=== PATIENT | male | born 1990 | race Caucasian/White ===

== ENCOUNTER 2017-02-23 23:52 | Emergency (ER) | payer BC ==
--- NOTE | 2017-02-24 00:06 | EDM.PDOC ---
ED HPI GENERAL MEDICAL PROBLEM - General Chief Complaint: Back Pain or Injury Stated Complaint: BACK PAIN Time Seen by Provider: 02/24/17 00:01 - History of Present Illness INITIAL COMMENTS - FREE TEXT/NARRATIVE: HISTORY AND PHYSICAL: History of present illness: Patient's 26-year-old male presents status post trauma in which a cable fell from approximately 100 feet striking him on the head and upper left back he states he had brief loss of consciousness his chief complaint on arrival here his mild headache and left upper back pain there is no chest or abdominal pain or trauma no numbness no weakness noted no vomiting or other concerns Review of systems: As per history of present illness and below otherwise all systems reviewed and negative. Past medical history: As per history of present illness and as reviewed below otherwise noncontributory. Surgical history: As per history of present illness and as reviewed below otherwise noncontributory. Social history: No reported history of drug or alcohol abuse. Family history: As per history of present illness and as reviewed below otherwise noncontributory. Physical exam: HEENT: Atraumatic, normocephalic, pupils reactive, negative for conjunctival pallor or scleral icterus, mucous membranes moist, throat clear, neck supple, nontender, trachea midline. Lungs: Clear to auscultation, breath sounds equal bilaterally, chest nontender. Heart: S1S2, regular, negative for clicks, rubs, or JVD. Abdomen: Soft, nondistended, nontender. Negative for masses or hepatosplenomegaly. Negative for costovertebral tenderness. Pelvis: Stable nontender. Genitourinary: Deferred. Rectal: Deferred. Extremities: Atraumatic, negative for cords or calf pain. Neurovascular unremarkable. Neuro: Awake, alert, oriented. Cranial nerves II through XII unremarkable. Cerebellum unremarkable. Motor and sensory unremarkable throughout. Exam nonfocal. Back: Patient is tenderness and small swelling in the region of the left upper parathoracic region and trapezius there is no crepitation she is able stand on his toes back on his heels is no midline or vertebral body tenderness Diagnostics: CT brain CT C-spine CT thoracic spine x-ray left shoulder chest x-ray Therapeutics: None Impression: #1 observation status post blunt trauma #2 left upper back contusion #3 cerebral concussion Definitive disposition and diagnosis as appropriate pending reevaluation and review of above. - Related Data Allergies Allergy/AdvReac Type Severity Reaction Status Date / Time No Known Allergies Allergy Verified 12/24/16 09:45 Home Meds: Home Meds Acetaminophen/HYDROcodone [Plummer 325-5 MG] 1 tab PO Q6H PRN #20 tablet 12/25/16 [Rx] Past Medical History - Past Surgical History HEENT Surgical History: Reports: Other (see below) Other HEENT Surgeries/Procedures: throat surgery as child Social & Family History - Family History Family Medical History: Noncontributory - Tobacco Use Smoking Status *Q: Current Every Day Smoker Years of Tobacco use: 7 Packs/Tins Daily: 0.3 Used Tobacco, but Quit: No Second Hand Smoke Exposure: Yes - Caffeine Use Caffeine Use: Reports: Energy drinks Other Caffeine Use: 12 oz red bull a day - Recreational Drug Use Recreational Drug Use: No ED ROS GENERAL - Review of Systems Review Of Systems: ROS reveals no pertinent complaints other than HPI. ED EXAM, GENERAL - Physical Exam Exam: See Below (See dictation) Course - Orders/Labs/Meds Orders: Active Orders 24 hr Category Date Time Status Cervical Spine wo Cont [CT] Stat Exams 02/24/17 00:01 Ordered Chest 2V [CR] Stat Exams 02/24/17 00:02 Ordered Head wo Cont [CT] Stat Exams 02/24/17 00:01 Ordered Shoulder Comp Lt [CR] Stat Exams 02/24/17 00:02 Ordered Thoracic Spine wo Cont [CT] Stat Exams 02/24/17 00:01 Ordered Departure - Departure Time of Disposition: 00:04 Disposition: Home, Self-Care 01 Condition: good Clinical Impression: Concussion, Contusion Forms: ED Department Discharge Additional Instructions: The following information is given to patients seen in the emergency department who are being discharged to home. This information is to outline your options for follow-up care. We provide all patients seen in our emergency department with a follow-up referral. The need for follow-up, as well as the timing and circumstances, are variable depending upon the specifics of your emergency department visit. If you don't have a primary care physician on staff, we will provide you with a referral. We always advise you to contact your personal physician following an emergency department visit to inform them of the circumstance of the visit and for follow-up with them and/or the need for any referrals to a consulting specialist. The emergency department will also refer you to a specialist when appropriate. This referral assures that you have the opportunity for followup care with a specialist. All of these measure are taken in an effort to provide you with optimal care, which includes your followup. Under all circumstances we always encourage you to contact your private physician who remains a resource for coordinating your care. When calling for followup care, please make the office aware that this follow-up is from your recent emergency room visit. If for any reason you are refused follow-up, please contact the [facility] emergency department at and asked to speak to the emergency department charge nurse. Alden Garibay as directed follow up primary medical doctor one to 2 days return as needed as discussed - My Orders Last 24 Hours: My Active Orders 02/24/17 00:01 Cervical Spine wo Cont [CT] Stat Head wo Cont [CT] Stat Thoracic Spine wo Cont [CT] Stat 02/24/17 00:02 Chest 2V [CR] Stat Shoulder Comp Lt [CR] Stat - Assessment/Plan Last 24 Hours: My Active Orders 02/24/17 00:01 Cervical Spine wo Cont [CT] Stat Head wo Cont [CT] Stat Thoracic Spine wo Cont [CT] Stat 02/24/17 00:02 Chest 2V [CR] Stat Shoulder Comp Lt [CR] Stat
[2017-02-24 01:18] VITALS: BP 112/76
--- NOTE | 2017-02-24 15:11 | CT ---
EXAM DATE: 02/23/17 PATIENT'S AGE: 26 Patient: MIKA ASHLEY Facility: [place], [place] Site . Site : 1990 Study: CT Head [id number]/29/2017 12:34:59 AM Ordering Physician: Ray Gomez Final Report: INDICATION: Injury with loss of consciousness TECHNIQUE: CT head without contrast. COMPARISON: None FINDINGS: CSF spaces: Within normal limits for age. Brain parenchyma: The ferrell-white differentiation is normal. No sign of mass, hemorrhage, or midline shift. Skull base and calvarium: The visualized paranasal sinuses and mastoid air cells demonstrate no acute findings. The visualized orbits are grossly unremarkable. No skull fractures. IMPRESSION: No acute intracranial abnormality. Dictated by Chanda Squires MD @ Feb 24 2017 12:43AM (Electronic Signature) Report Signed by Proxy and Original Signed Document filed in the Medical Record. [facility]
--- NOTE | 2017-02-24 15:12 | CT ---
EXAM DATE: 02/23/17 PATIENT'S AGE: 26 Patient: MIKA ASHLEY Facility: [place], [place] Site . Site : 1990 Study: CT Spine Cervical [id number]/29/2017 12:35:45 AM Ordering Physician: Ray Gomez Final Report: INDICATION: Neck injury, loss of consciousness TECHNIQUE: CT cervical spine without contrast. COMPARISON: None FINDINGS: Vertebral alignment: Alignment is normal. Vertebrae: There are no fractures or suspicious bony lesions. Discs and facet joints: Disc spaces and facets are within normal limits. Extraspinal findings: Prevertebral soft tissues, visualized airway, and visualized lungs are unremarkable. IMPRESSION: No acute cervical spine fracture or subluxation. Dictated by Chanda Squires MD @ Feb 24 2017 12:46AM (Electronic Signature) Report Signed by Proxy and Original Signed Document filed in the Medical Record. DANIEL
--- NOTE | 2017-02-24 15:13 | CT ---
EXAM DATE: 02/23/17 PATIENT'S AGE: 26 Patient: MIKA ASHLEY Facility: [place], [place] Site . Site : 1990 Study: CT Spine Thoracic [id number]/29/2017 12:44:12 AM Ordering Physician: Ray Gomez Final Report: INDICATION: Trauma to upper back TECHNIQUE: CT thoracic spine without contrast. COMPARISON: None FINDINGS: Vertebral alignment: Alignment is normal. Vertebrae: There are no fractures or suspicious bony lesions. Discs and facet joints: Disc spaces and facets are within normal limits. Extraspinal findings: Prevertebral soft tissues, visualized airway, and visualized lungs are unremarkable. IMPRESSION: Unremarkable thoracic spine CT. Dictated by Chanda Squires MD @ Feb 24 2017 12:54AM (Electronic Signature) Report Signed by Proxy and Original Signed Document filed in the Medical Record. DANIEL
--- NOTE | 2017-02-24 15:14 | CR ---
EXAM DATE: 02/23/17 PATIENT'S AGE: 26 Patient: MIKA ASHLEY Facility: [place], [place] Site . Site : 1990 Study: XRay Chest [id number]/29/2017 12:55:21 AM Ordering Physician: Ray Gomez Final Report: INDICATION: CHEST INJURY AT WORK TECHNIQUE: Chest radiograph 2 views COMPARISON: None FINDINGS: Cardiovascular and mediastinum: The cardiac silhouette is normal in appearance and size. Mediastinum is within normal limits. Lungs and pleural spaces: Both lungs are unremarkable in appearance. No sign of pleural effusion. No pneumothorax is seen. Bones and soft tissues: No significant findings. IMPRESSION: 1. No acute cardiopulmonary disease seen. Dictated by: Girish Paredes MD @ 02/24/2017 01:11:24 (Electronic Signature) Report Signed by Proxy and Original Signed Document filed in the Medical Record. MTDD
--- NOTE | 2017-02-24 15:15 | CR ---
EXAM DATE: 02/23/17 PATIENT'S AGE: 26 Patient: MIKA ASHLEY Facility: [place], [place] Site . Site : 1990 Study: XRay Shoulder Left [id number]/29/2017 12:56:00 AM Ordering Physician: Ray Gomez Final Report: INDICATION: INJURY TO LT SHOULDER AT WORK TECHNIQUE: Shoulder radiograph 2 views left COMPARISON: None FINDINGS: Bones: Alignment is normal. No acute fractures or aggressive bone lesions identified. Joint spaces: The glenohumeral joint is unremarkable in appearance. The acromioclavicular (AC) joint is unremarkable. No radiographic evidence of a shoulder effusion is seen. Soft tissues: The visualized hemithorax is unremarkable. No radiopaque foreign bodies are seen. IMPRESSION: No acute osseous injuries are noted. Dictated by: Girish Paredes MD @ 02/24/2017 01:11:55 (Electronic Signature) Report Signed by Proxy and Original Signed Document filed in the Medical Record. MTDD
== END 2017-02-24 01:27 | disposition home or self-care (01) ==
LOC: MW.ED 23:52
DX: S06.0X0A Concussion without loss of consciousness, initial encounter (principal); S20.222A Contusion of left back wall of thorax, initial encounter; F17.210 Nicotine dependence, cigarettes, uncomplicated; Z98.890 Other specified postprocedural states; W20.8XXA Other cause of strike by thrown, projected or falling object, initial encounter
CPT/HCPCS: 70450; 70450-26; 71020; 71020-26; 72125; 72125-26; 72128; 72128-26; 73030-26-LT; 73030-LT; 99284; 99284-25

== ENCOUNTER 2017-12-24 07:56 | Day surgery (SDC) | payer BC, OTHER ==
[~2017-12-24 07:56] MED LIST: Lactated Ringers 1,000 ML IV SCH; ceFAZolin 2 GM in Premix Bag 1 BAG IV SCH
[2017-12-24] MEDS ORDERED: fentaNYL 100 MCG/2 ML SDV ONE ×2 (08:27→10:30)
[2017-12-24] MEDS ORDERED: Midazolam 1 MG/ML 2 ML SDV ONE (08:27)
[2017-12-24] MEDS ORDERED: Lidocaine 2% 5 ML SDV ONE (08:27)
[2017-12-24] MEDS ORDERED: Propofol 200 MG/20 ML SDV ONE (08:27)
[2017-12-24] MEDS ORDERED: Ketorolac 30 MG/ML SDV ONE (08:34)
[2017-12-24] MEDS ORDERED: Rocuronium 10 MG/ML 10 ML Syringe ONE (08:34)
[2017-12-24] MEDS ORDERED: Glycopyrrolate 0.2 MG/ML SDV ONE (08:34)
[2017-12-24] MEDS ORDERED: Neostigmine Methylsulfate 1 MG/ML 5 ML Syringe ONE (08:34)
[2017-12-24] MEDS ORDERED: Ondansetron 4 MG/2 ML SDV ONE (08:34)
--- NOTE | 2017-12-24 09:13 | PCM.PREANE ---
Preanesthetic Assessment - Anesthesia/Transfusion/Family Hx Anesthesia History: Prior Anesthesia Without Reaction (appy) Family History of Anesthesia Reaction: No Transfusion History: No Prior Transfusion(s) - Review of Systems General: No Symptoms Pulmonary: No Symptoms Cardiovascular: No Symptoms Gastrointestinal: No Symptoms Neurological: No Symptoms Other: Reports: None - Physical Assessment NPO Status Date: 12/23/17 O2 Sat by Pulse Oximetry: 98 Respiratory Rate: 16 Vital Signs: Last Vital Signs Temp 36.4 C 12/24/17 08:16 Pulse 58 L 12/24/17 08:16 Resp 16 12/24/17 08:16 BP 164/69 H 12/24/17 08:16 Pulse Ox 98 12/24/17 08:16 Height: 1.8 m Weight: 92.079 kg ASA Class: 1 Mental Status: Alert & Oriented x3 Airway Class: Mallampati = 1 Dentition: Reports: Normal Dentition ROM/Head Extension: Full Lungs: Clear to Auscultation, Normal Respiratory Effort Cardiovascular: Regular Rate, Regular Rhythm - Allergies Allergies/Adverse Reactions: Allergies Allergy/AdvReac Type Severity Reaction Status Date / Time No Known Allergies Allergy Verified 12/21/17 10:16 - Anesthesia Plan Pre-Op Medication Ordered: None - Acknowledgements Anesthesia Type Planned: General Anesthesia Pt an Appropriate Candidate for the Planned Anesthesia: Yes Alternatives and Risks of Anesthesia Discussed w Pt/Guardian: Yes Pt/Guardian Understands and Agrees with Anesthesia Plan: Yes Additional Comments: PMH: smoker. Plan GA-LMA PreAnesthesia Questionnaire Gastrointestinal History: Reports: Other (See Below) Other Gastrointestinal History: occasional heartburn Neurological History: Reports: Concussion - Infectious Disease History Infectious Disease History: Reports: Chicken Pox - Past Surgical History Head Surgeries/Procedures: Reports: None HEENT Surgical History: Reports: Other (See Below) Other HEENT Surgeries/Procedures: throat surgery as child GI Surgical History: Reports: Appendectomy - SUBSTANCE USE Smoking Status *Q: Light Tobacco Smoker Tobacco Use Within Last Twelve Months: Cigarettes, Snuff/Dip Second Hand Smoke Exposure: Yes Recreational Drug Use History: No - HOME MEDS Home Medications: Home Meds . [No Known Home Meds] 11/23/17 [History] - CURRENT (IN HOUSE) MEDS Current Meds: Current Medications Lactated Ringer's (Ringers, Lactated) 1,000 mls @ 125 mls/hr IV ASDIRECTED [facility] Last Admin: 12/24/17 08:22 Dose: 125 mls/hr Cefazolin Sodium/Dextrose 2 gm (/ Premix) 50 mls @ 100 mls/hr IV ONETIME [facility] Discontinued Medications Fentanyl (Sublimaze) Confirm Administered Dose 300 mcg .ROUTE .STK-MED ONE Stop: 12/24/17 08:28 Glycopyrrolate (Robinul) Confirm Administered Dose 0.6 mg .ROUTE .STK-MED ONE Stop: 12/24/17 08:35 Lactated Ringer's (Ringers, Lactated) 1,000 mls @ 125 mls/hr IV ASDIRECTED [facility] Ketorolac Tromethamine (Toradol) Confirm Administered Dose 30 mg .ROUTE .ST- MED ONE Stop: 12/24/17 08:35 Lidocaine (Xylocaine-Mpf 2%) Confirm Administered Dose 10 ml .ROUTE .STK-MED ONE Stop: 12/24/17 08:28 Midazolam HCl (Versed 1 Mg/Ml) Confirm Administered Dose 2 mg .ROUTE .STK-MED ONE Stop: 12/24/17 08:28 Neostigmine Methylsulfate (Neostigmine) Confirm Administered Dose 5 mg .ROUTE .STK-MED ONE Stop: 12/24/17 08:35 Ondansetron HCl (Zofran) Confirm Administered Dose 4 mg .ROUTE .STK-MED ONE Stop: 12/24/17 08:35 Propofol (Diprivan 20 Ml) Confirm Administered Dose 400 mg .ROUTE .STK-MED ONE Stop: 12/24/17 08:28 Rocuronium Amawalk (Zemuron) Confirm Administered Dose 100 mg .ROUTE .STK-MED ONE Stop: 12/24/17 08:35
[2017-12-24] MEDS ORDERED: Bupivacaine 0.5% 10 ML SDV ONE (09:51)
[2017-12-24] MEDS ORDERED: ceFAZolin 1 GM Vial ONE (09:52)
[2017-12-24] MEDS ORDERED: HYDROmorphone 2 MG/ML Syringe IVPUSH ONE (10:33)
[2017-12-24] MEDS ORDERED: Ondansetron 4 MG/2 ML SDV IVPUSH PRN (11:10)
[2017-12-24] MEDS ORDERED: Morphine 10 MG/ML Syringe IVPUSH PRN (11:10)
[2017-12-24] MEDS ORDERED: Acetaminophen/HYDROcodone 325-5 MG Tab PO PRN (11:10)
--- NOTE | 2017-12-24 11:13 | PCM.OPNOTE ---
- General Post-Op/Procedure Note Date of Surgery/Procedure: 12/24/17 Operative Procedure(s): Repair left inguinal hernia with small Bard PerFix plug and patch Pre Op Diagnosis: Reducible left inguinal hernia Post-Op Diagnosis: Same Anesthesia Technique: General ET Tube (ASA II) Primary Surgeon: Renzo Lopez Fluid Replacement, Intraop: 1,600 EBL in mLs: 20 Condition: Good Free Text/Narrative:: Dictation [id number] CPT CODE 74473
[2017-12-24] MEDS ORDERED: Lactated Ringers 1,000 ML IV SCH (11:15)
[2017-12-24] MEDS: fentaNYL 100 MCG/2 ML SDV IVPUSH PRN ×2 (11:35→11:40)
--- NOTE | 2017-12-24 11:40 | OR ---
SURGEON: Renzo Lopez M.D. DATE OF PROCEDURE: 12/24/2017 OPERATION PERFORMED: Repair of left inguinal hernia with small Bard PerFix plug and patch. ANESTHESIA: General endotracheal ASA CLASSIFICATION: II. PREOPERATIVE DIAGNOSIS: Reducible left inguinal hernia. POSTOPERATIVE DIAGNOSIS: Reducible left inguinal hernia. ESTIMATED BLOOD LOSS: 10 mL. INTRAOPERATIVE FLUID REPLACEMENT: 1600 mL of crystalloid. DESCRIPTION OF PROCEDURE: The patient was taken to the operating room and placed on the operating room table in supine position. Time-out was called for appropriate identification the patient and procedure. Thigh-high TEDs and sequential compression boots were placed. The surgical site had been marked prior to the patient entering the operating room. Following satisfactory attainment of general endotracheal anesthesia, the abdomen was prepped with DuraPrep solution. Sterile drapes were applied. The skin incision was marked out on the left inguinal crease. The skin was then infiltrated with 10 mL of 0.5% Marcaine solution. The skin incision was made and deepened through the subcutaneous tissue obtaining hemostasis with a combination of 3-0 Vicryl ties and electrocautery. Dissection was carried down to the external oblique fascia, which was opened in the direction of its fibers. The cord was then identified. There was no indirect hernia noted. The floor was quite weak. No hernia sac was present. The cord was then mobilized and encircled with a Babb drain. A small Bard PerFix plug and patch was brought to the operating table and soaked in 1% Ancef solution. The plug was placed into the internal ring and the patch placed over the floor. The plug was separately secured with 0 Ethibond suture. The patch was then secured in place with interrupted 0 Ethibond sutures superiorly to transversalis fascia and medially and inferiorly to the pubic tubercle transitioning to the inguinal ligament. The wings of the patch were brought around the cord and secured laterally with an 0 Ethibond suture. The patient was given a Valsalva maneuver to 52 cm of water. The repair was solid. The sutures were all secured. The wound was then irrigated with 1% Ancef solution and all fluid aspirated. The cord was returned to its anatomic location. The external oblique fascia was closed with running 3-0 Vicryl. Christa's fascia was reapproximated with 3-0 Vicryl and the skin edges were reapproximated with subcuticular 4-0 Monocryl reinforced with Steri-Strips. Sterile Tegaderm pad was placed as a dressing. Sponge, needle, and instrument counts were all correct. Following emergence from anesthesia and extubation, the patient was taken to recovery room in stable condition. PETE LOCKHART /[id number]
--- NOTE | 2017-12-24 11:53 | PCM.POSTAN ---
POST ANESTHESIA ASSESSMENT - MENTAL STATUS Mental Status: Alert, Oriented - RESPIRATORY Respiratory Status: Respiratory Rate WNL, Airway Patent, O2 Saturation Stable - CARDIOVASCULAR CV Status: Pulse Rate WNL, Blood Pressure Stable - GASTROINTESTINAL GI Status: No Symptoms - POST OP HYDRATION Hydration Status: Adequate & Stable
--- NOTE | 2017-12-24 12:05 | PCM48HPAN ---
Post Anesthesia Note - EVALUATION WITHIN 48HRS OF ANESTHETIC Vital Signs in Normal Range: Yes Patient Participated in Evaluation: Yes Respiratory Function Stable: Yes Airway Patent: Yes Cardiovascular Function Stable: Yes Hydration Status Stable: Yes Pain Control Satisfactory: Yes Nausea and Vomiting Control Satisfactory: Yes Mental Status Recovered: Yes
[2017-12-24 13:42] VITALS: BP 128/74
== END 2017-12-24 14:24 | disposition home or self-care (01) ==
LOC: MW.SDS 07:56
PROVIDERS: ATTEND Surgery
DX: K40.90 Unilateral inguinal hernia, without obstruction or gangrene, not specified as recurrent (principal); F17.210 Nicotine dependence, cigarettes, uncomplicated; Z90.49 Acquired absence of other specified parts of digestive tract
CPT/HCPCS: 49505; J0690; J1885; J2250; J2405; J3010; J7120; 00830; C1781; J2704

== ENCOUNTER 2024-12-05 07:32 | Emergency (ER) | payer OTHER ==
[2024-12-05] MEDS: Methocarbamol 750 MG Tab PO ONE (08:37)
[2024-12-05] MEDS: Ketorolac 30 MG/ML SDV IM ONE (08:37)
[2024-12-05] MEDS ORDERED: Naloxone 0.4 MG/ML SDV IVPUSH PRN (09:18)
[2024-12-05] MEDS: HYDROmorphone 1 MG/ML Syringe IM ONE (09:24)
[2024-12-05 10:18] VITALS: BP 131/80; PULSE 64
== END 2024-12-05 10:16 | disposition home or self-care (01) ==
LOC: MW.ED 07:32
DX: S74.02XA Injury of sciatic nerve at hip and thigh level, left leg, initial encounter (principal); Z88.8 Allergy status to other drugs, medicaments and biological substances; Z90.49 Acquired absence of other specified parts of digestive tract; Z79.899 Other long term (current) drug therapy; X58.XXXA Exposure to other specified factors, initial encounter
CPT/HCPCS: 96372; 99283; A9270; J1171; J1885

== ENCOUNTER 2025-09-11 19:48 | Emergency (ER) | payer BC ==
[2025-09-11 21:24] VITALS: BP 132/91; PULSE 72
== END 2025-09-11 21:23 | disposition home or self-care (01) ==
LOC: MW.ED 19:48
DX: M54.9 Dorsalgia, unspecified (principal); Z88.5 Allergy status to narcotic agent
CPT/HCPCS: 99283; A9270